=== PATIENT | male | born 1940 | race Caucasian/White ===

== ENCOUNTER → 2018-11-11 | Outpatient (CLI) | payer MEDICARE ==
[~2018-11-11] MED LIST: Percocet 5-3251 EACH PO; Ultram50 MG PO; Zofran Odt4 MG SL
== END | disposition home or self-care (01) ==
LOC: PLD 13:55 → LAB SHORT 13:55
DX: L57.0 Actinic keratosis (principal)
CPT/HCPCS: 88305

== ENCOUNTER 2019-02-03 08:50 | Day surgery (SDC) | payer MEDICARE ==
[~2019-02-03] VITALS: Ht 177.8 cm; Wt 84.4 kg
[~2019-02-03 08:50] MED LIST changes: +ATOR10 PO; +Aspir 8181 MG PO; +FINA5 PO; +LOSA25 PO; +TAMS.4ER PO; +[UNRECOGNIZED DRUG - OTHER] PO
--- NOTE | 2019-02-03 09:36 | NUR ---
02/03/19 0936 Rand Hartman S PT. WITH CRACKLES IN RLL POSTERIORLY. PT. VERBALIZES HAVING 2 SPONTANEOUS PNEUMOTHAX IN HIS YOUNGER YEARS SO THERE IS SCAR TISSUE. DR. DENISE AWARE, NO ORDERS GIVEN.
== END 2019-02-03 10:50 | disposition home or self-care (01) ==
LOC: ORSCSDS 08:50
PROVIDERS: Surgery
PROC: 0DJD8ZZ Inspection of Lower Intestinal Tract, Via Natural or Artificial Opening Endoscopic (ICD-10-PCS; principal; 2019-02-03 10:00)
DX: Z12.11 Encounter for screening for malignant neoplasm of colon (principal); Z86.010 Personal history of colon polyps; K57.30 Diverticulosis of large intestine without perforation or abscess without bleeding; K64.8 Other hemorrhoids; E78.5 Hyperlipidemia, unspecified; Z79.82 Long term (current) use of aspirin; Z79.899 Other long term (current) drug therapy
CPT/HCPCS: 82947; J7120

== ENCOUNTER → 2025-03-21 | Outpatient (CLI) | payer OTHER | LOC: LAB SHORT 08:02 → LAB 08:02 | DX: C05.0 Malignant neoplasm of hard palate (principal); K13.70 Unspecified lesions of oral mucosa | CPT/HCPCS: 88305; 88342 ==

== ENCOUNTER 2025-08-29 16:32 | Inpatient (IN) | payer OTHER ==
[~2025-08-29] VITALS: Ht 172.7 cm; Wt 81.6 kg
[2025-08-29 17:29] LABS: BASOPHILS ABSOLUTE AUTO 0.07 K/mm3 (0.00-0.23); BASOPHILS PERCENT AUTO 0 % (0-2); EOSINOPHILS ABSOLUTE AUTO 1.71 K/mm3 (0.00-0.68); EOSINOPHILS PERCENT AUTO 6 % (0-6); Hematocrit 35.8 % (37.0-53.0); Hemoglobin 11.8 g/dL (13.5-17.5); IMMATURE GRAN ABSOLUTE AUTO 0.17 K/mm3 (0.00-0.10); IMMATURE GRAN PERCENT AUTO 1 % (0-1); LYMPHOCYTES ABSOLUTE AUTO 1.15 K/mm3 (0.84-5.20); LYMPHOCYTES PERCENT AUTO 4 % (21-46); MONOCYTES ABSOLUTE AUTO 1.52 K/mm3 (0.16-1.47); MONOCYTES PERCENT AUTO 5 % (4-13); Mean Corpuscular HGB Conc 33.0 g/dL (31.5-36.5); Mean Corpuscular Volume 81 fL (80-100); NEUTROPHILS ABSOLUTE AUTO 24.17 K/mm3 (1.96-9.15); NEUTROPHILS PERCENT AUTO 84 % (41-73); NRBC ABSOLUTE 0.00 K/mm3 (0.00-0.02); NRBC Auto 0.0 /100 WBC (0.0-0.2); Platelet Count 249 K/mm3 (150-400); RDW Coefficient Variation 14.2 % (11.7-14.2); RDW Standard Deviation 41.8 fL (35.1-46.3)
[2025-08-29] MEDS ORDERED: Cefepime HCl 2,000 MG in NS 100 ML IV ONE (17:55)
[2025-08-29 18:01] LABS: Alanine Aminotransfer (ALT/SGP 35.0 U/L (12-78); Albumin, Blood 2.6 g/dL (3.4-5.0); Albumin/Globulin Ratio 0.6 (0.8-1.8); Anion Gap 7.0 mmol/L (3-11); Aspartate Aminotrans (AST/SGOT 22.0 U/L (12-37); Bilirubin, Total 0.7 mg/dL (0.1-1.0); Blood Urea Nitrogen 30.0 mg/dL (8-24); CO2, Blood 30.0 mmol/L (21-32); Calcium, Blood 10.4 mg/dL (8.5-10.1); Chloride, Blood 103.0 mmol/L (98-108); Creatinine, Blood 0.86 mg/dL (0.60-1.20); Globulin, Blood 4.6 g/dL (2.2-4.0); Glucose, Blood 119.0 mg/dL (70-99); Potassium, Blood 3.7 mmol/L (3.5-5.5); Sodium, Blood 136.0 mmol/L (136-145); Total Protein, Blood 7.2 g/dL (6.4-8.2)
[2025-08-29 18:34] LABS: Source, Urine Clean Catch
[2025-08-29 18:37] LABS: Bilirubin, Urine Neg (Neg); Color, Urine Yellow (P-Yellow); Glucose Qualitative, Urine Neg (Neg); Ketones, Urine Neg (Neg); Leukocyte Esterase, Urine Neg (Neg); Protein, Urine 1+ (Neg); Specific Gravity, Urine 1.015 (1.003-1.022); Urobilinogen, Urine NORM (Normal)
[2025-08-29] MEDS ORDERED: NS 1,000 ML IV SCH ×2 (18:40→21:20)
[2025-08-29] MEDS ORDERED: Ondansetron HCl 2 MG / ML 2ML Vial IV PRN (21:20)
[2025-08-29] MEDS ORDERED: FLU VACC TS2025(65UP)/MF59C/PF 45 MCG/0.5 ML SYRINGE IM SCH (21:20)
[2025-08-29] MEDS ORDERED: Albuterol 2.5 MG/3 ML VIAL INH PRN (23:00)
[2025-08-29 23:21] LABS: pH Blood Venous 7.54 (7.34-7.37)
[2025-08-29 23:29] LABS: SARS-Cov-2 (COVID-19), BioFire Not Detected (NOT DETECT)
[2025-08-29 23:30] LABS: Influenza A/2009-H1 Not Detected (NOT DETECT)
[2025-08-29] MEDS ORDERED: LORazepam 2 MG/ML 1ML Injection IV ONE (23:35)
[2025-08-30 01:03] VITALS: BP 141/56
[2025-08-30 04:26] VITALS: BP 125/46
--- NOTE | 2025-08-30 04:46 | NUR ---
SHIFT SUMMARY PATIENT ADMITTED FOR SIRS THIS SHIFT. VSS. PATIENT ON CONTINUOUS NORMAL SALINE 100ML/HR. PATIENT INSISTENT ON STANDING TO PEE DUE TO ARTIFICIAL URETHAL SPHINCTER. PATIENT HAS UNSTEADY GATE DUE TO WEAKNESS AND SHAKINESS. PATIENT OFFERED MALE PUREWICK AND AT FIRST REFUSED BUT ULTIMATELY DECIDED TO LET US PLACE THE PUREWICK. PATIENT HAD COMPLAINTS OF A NOSEBLEED WHICH WAS RESOLVED WITH PRESSURE. PATIENT HAS SLURRED SPEECH DUE TO JAW SURGERY. BED IN LOWEST POSITION FOR SAFETY, BED RAILS UP X2, BED ALARM ON. PATIENT ORIENTED TO CALL LIGHT AND CALL LIGHT WITHIN REACH.
[2025-08-30 04:53] LABS: BASOPHILS ABSOLUTE AUTO 0.04 K/mm3 (0.00-0.23); BASOPHILS PERCENT AUTO 0 % (0-2); EOSINOPHILS ABSOLUTE AUTO 0.06 K/mm3 (0.00-0.68); EOSINOPHILS PERCENT AUTO 0 % (0-6); Hematocrit 32.4 % (37.0-53.0); Hemoglobin 10.8 g/dL (13.5-17.5); IMMATURE GRAN ABSOLUTE AUTO 0.14 K/mm3 (0.00-0.10); IMMATURE GRAN PERCENT AUTO 1 % (0-1); LYMPHOCYTES ABSOLUTE AUTO 1.05 K/mm3 (0.84-5.20); LYMPHOCYTES PERCENT AUTO 5 % (21-46); MONOCYTES ABSOLUTE AUTO 1.45 K/mm3 (0.16-1.47); MONOCYTES PERCENT AUTO 6 % (4-13); Mean Corpuscular HGB Conc 33.3 g/dL (31.5-36.5); Mean Corpuscular Volume 80 fL (80-100); NEUTROPHILS ABSOLUTE AUTO 20.70 K/mm3 (1.96-9.15); NEUTROPHILS PERCENT AUTO 88 % (41-73); NRBC ABSOLUTE 0.00 K/mm3 (0.00-0.02); NRBC Auto 0.0 /100 WBC (0.0-0.2); Platelet Count 261 K/mm3 (150-400); RDW Coefficient Variation 14.1 % (11.7-14.2); RDW Standard Deviation 41.8 fL (35.1-46.3)
[2025-08-30 05:19] LABS: Anion Gap 7.0 mmol/L (3-11); Blood Urea Nitrogen 23.0 mg/dL (8-24); CO2, Blood 28.0 mmol/L (21-32); Calcium, Blood 9.4 mg/dL (8.5-10.1); Chloride, Blood 110.0 mmol/L (98-108); Creatinine, Blood 0.78 mg/dL (0.60-1.20); Glucose, Blood 127.0 mg/dL (70-99); Magnesium, Blood 1.9 mg/dL (1.6-2.4); Potassium, Blood 3.5 mmol/L (3.5-5.5); Sodium, Blood 141.0 mmol/L (136-145)
[2025-08-30] MEDS ORDERED: CefTRIAXone Sodium 1,000 MG in NS 100 ML IV SCH (06:00)
[2025-08-30] MEDS ORDERED: Enoxaparin 40 MG/0.4 ML SYR SC SCH (09:00)
[2025-08-30] MEDS ORDERED: TRESIBA FL100 UNIT/2 SC (09:19)
[2025-08-30 11:23] VITALS: BP 129/55
[2025-08-30] MEDS ORDERED: Ampicillin Sod/Sulbactam Sod 3 GM in NS 100 ML IV SCH (18:00)
[2025-08-30 18:28] LABS: Prothrombin Time Results 13.1 Sec (9.7-11.5)
--- NOTE | 2025-08-30 18:49 | NUR ---
SHIFT SUMMARY PATIENT A/OX4, ABLE TO MAKE NEEDS KNOWN. PLEASANT AND COOPERATIVE WITH CARE. MUMBLED SOFT SPEECH. 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 TELEGRAPHIC TYPEWRITER INSTALLER CALLED THIS AM PER PATIENT'S SPOUSE REQUEST. MED REC COMPLETED TODAY, MEDICATIONS HELD THIS AM THEY WERE NOT MEDICATION PATIENT WAS TAKING ANY LONGER. PATIENT WITH ARTIFICAL URETHRAL SPHINCTER AND ABLE TO TURN ON/OFF ABILITY TO URINATE BY ACTIVATING. WBC ELEVATED, IV FLUIDS AND ABX INFUSING PER MAR. PLAN TO HAVE LUNG BIOPSY TOMORROW, HOLD LOVENOX. PATIENT'S PROVIDED HOME MEDICATION OF PEPTO TODAY AND EDUCATED TO NOT HAVE ANY HOME MEDICATION. PATIENT WITH DIARRHEA, MD NOTIFIED AND IMODIUM ADMINISTERED PER JAN. PHYSICAL THERAPY ASSESSED PATIENT THIS SHIFT, ABLE TO AMBULATE 1 PERSON ASSIST. 1-2 PERSEON DEPENDING ON STRENGTH. NO OTHER CONCERNS AT THIS TIME, WILL CONTINUE TO MONITOR.
[2025-08-30 19:34] VITALS: BP 134/57
[2025-08-30] MEDS ORDERED: Insulin Glargine 100 Unit/ML 3 ML SYR SC SCH (21:00)
[2025-08-30 23:46] VITALS: BP 118/55
[2025-08-31] VITALS (15 sets, daily range): BP systolic 100–155; BP diastolic 54–93
--- NOTE | 2025-08-31 03:34 | NUR ---
SHIFT SUMMARY ADMITTED FOR SIRS. DNR CODE. IV FLUID INFUSING. IV ANTIB RX ARE SCHEDULED. LUNG BIOPSY SCHEDULED FOR TODAY. PNEUMONIA VS. LUNG CANCER. TELEMETRY: NSR @ 97 BPM. PUREE/ADA DIET. A&O X4. SPEECH IS MUMBLED DUE TO JAW SURGERY. 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 LAST CHEMO TX RECEIVED ON 08/28/25.
[2025-08-31 04:48] LABS: BASOPHILS ABSOLUTE AUTO 0.03 K/mm3 (0.00-0.23); BASOPHILS PERCENT AUTO 0 % (0-2); EOSINOPHILS ABSOLUTE AUTO 0.21 K/mm3 (0.00-0.68); EOSINOPHILS PERCENT AUTO 1 % (0-6); Hematocrit 30.8 % (37.0-53.0); Hemoglobin 10.2 g/dL (13.5-17.5); IMMATURE GRAN ABSOLUTE AUTO 0.08 K/mm3 (0.00-0.10); IMMATURE GRAN PERCENT AUTO 0 % (0-1); LYMPHOCYTES ABSOLUTE AUTO 1.44 K/mm3 (0.84-5.20); LYMPHOCYTES PERCENT AUTO 8 % (21-46); MONOCYTES ABSOLUTE AUTO 1.18 K/mm3 (0.16-1.47); MONOCYTES PERCENT AUTO 6 % (4-13); Mean Corpuscular HGB Conc 33.1 g/dL (31.5-36.5); Mean Corpuscular Volume 80 fL (80-100); NEUTROPHILS ABSOLUTE AUTO 15.80 K/mm3 (1.96-9.15); NEUTROPHILS PERCENT AUTO 84 % (41-73); NRBC ABSOLUTE 0.00 K/mm3 (0.00-0.02); NRBC Auto 0.0 /100 WBC (0.0-0.2); Platelet Count 262 K/mm3 (150-400); RDW Coefficient Variation 14.2 % (11.7-14.2); RDW Standard Deviation 41.8 fL (35.1-46.3)
[2025-08-31 05:14] LABS: Anion Gap 7.0 mmol/L (3-11); Blood Urea Nitrogen 19.0 mg/dL (8-24); CO2, Blood 26.0 mmol/L (21-32); Calcium, Blood 8.5 mg/dL (8.5-10.1); Chloride, Blood 112.0 mmol/L (98-108); Creatinine, Blood 0.71 mg/dL (0.60-1.20); Glucose, Blood 108.0 mg/dL (70-99); Potassium, Blood 3.1 mmol/L (3.5-5.5); Sodium, Blood 142.0 mmol/L (136-145)
[2025-08-31] MEDS ORDERED: Enoxaparin 40 MG/0.4 ML SYR SC SCH (09:00)
--- NOTE | 2025-08-31 19:44 | NUR ---
SHIFT SUMMARY PATIENT A/OX4, ABLE TO MAKE NEEDS KNOWN. SOFT, MUMBLED SPEECH R/T HX JAW RESSUCTION. LUNG BIOPSY OBTAINED THIS MORNING, PATIENT RETURNED AFTER PROCEDURE WITH POSSIBLE PNEOMOTHORAX. MD MADE AWARE AND AT BEDSIDE UPON HIS RETURN TO RM [id number]. PATIENT PLACED ON SUPPLEMENTAL OXYGEN, 2LPM VIA NASAL CANNULA. STRICT BEDREST X2H POST PROCEDURE. VS OBTAINED Q15 MIN X4 THEN Q30 MIN X2, VSS. ORDER FOR NO HEAVY LIFTING. NO BLOOD THINNERS X48 HOURS. 2HOUR POST OP PATIENT HAD CHEST X RAY SHOWING PNEUMOTHORAX RESOLVED. PATIENT COMPLAINING OF HICCUPS THROUGHOUT THE SHIFT, BACLOFEN ORDER CHANGED TODAY TO HELP RELOIEVE SYMPTOMS. TELEMTERY IN PLACE, NO EVENTS NOTED PATIENT WITH SINUS RHYTHYM, BBB RATE IN 80-90s. POTASSIUM INFUSED PER JAN. NEW IV PLACED TO HERBER VIA ULTRASOUND. NO OTHER CONCERNS AT THIS TIME, BEDSIDE SHIFT REPORT COMPLETED [facility] CHLORINATION OPERATOR RN.
[2025-08-31] MEDS ORDERED: Prochlorperazine Edisylate 10 mg Vial IV ONE (19:55)
[2025-09-01 04:05] VITALS: BP 100/89
--- NOTE | 2025-09-01 04:32 | NUR ---
SHIFT SUMMARY ADMITTED FOR SIRS. DNR CODE. LUNG BIOPSY PERFORMED ON PREVIOUS SHIFT. PNEUMONIA VS. CANCER TO BE DETERMINED. IV ANTIB RX ARE SCHEDULED. IV FLUID INFUSING. DR. PADILLA IS HIS ONCOLOGIST. HX OF JAW CANCER W/RESECTION. 1 ASSIST TO BSC W/FWW. A&O X3, ANXIOUS. TELEMETRY: NSR @ 74 BPM. PUREE/ADA DIET. RECENT CHEMO ON 08/28/2025.
[2025-09-01 04:34] LABS: BASOPHILS ABSOLUTE AUTO 0.04 K/mm3 (0.00-0.23); BASOPHILS PERCENT AUTO 0 % (0-2); EOSINOPHILS ABSOLUTE AUTO 0.27 K/mm3 (0.00-0.68); EOSINOPHILS PERCENT AUTO 2 % (0-6); Hematocrit 29.5 % (37.0-53.0); Hemoglobin 9.6 g/dL (13.5-17.5); IMMATURE GRAN ABSOLUTE AUTO 0.08 K/mm3 (0.00-0.10); IMMATURE GRAN PERCENT AUTO 1 % (0-1); LYMPHOCYTES ABSOLUTE AUTO 1.36 K/mm3 (0.84-5.20); LYMPHOCYTES PERCENT AUTO 9 % (21-46); MONOCYTES ABSOLUTE AUTO 1.27 K/mm3 (0.16-1.47); MONOCYTES PERCENT AUTO 8 % (4-13); Mean Corpuscular HGB Conc 32.5 g/dL (31.5-36.5); Mean Corpuscular Volume 82 fL (80-100); NEUTROPHILS ABSOLUTE AUTO 12.81 K/mm3 (1.96-9.15); NEUTROPHILS PERCENT AUTO 81 % (41-73); NRBC ABSOLUTE 0.00 K/mm3 (0.00-0.02); NRBC Auto 0.0 /100 WBC (0.0-0.2); Platelet Count 250 K/mm3 (150-400); RDW Coefficient Variation 14.2 % (11.7-14.2); RDW Standard Deviation 42.4 fL (35.1-46.3)
[2025-09-01 05:13] LABS: Anion Gap 7.0 mmol/L (3-11); Blood Urea Nitrogen 20.0 mg/dL (8-24); CO2, Blood 26.0 mmol/L (21-32); Calcium, Blood 8.4 mg/dL (8.5-10.1); Chloride, Blood 111.0 mmol/L (98-108); Creatinine, Blood 0.65 mg/dL (0.60-1.20); Glucose, Blood 146.0 mg/dL (70-99); Potassium, Blood 3.2 mmol/L (3.5-5.5); Sodium, Blood 141.0 mmol/L (136-145)
[2025-09-01 07:51] VITALS: BP 139/55
[2025-09-01] MEDS ORDERED: Enoxaparin 40 MG/0.4 ML SYR SC SCH (09:00)
[2025-09-01 11:39] VITALS: BP 139/63
[2025-09-01 15:21] VITALS: BP 167/67
--- NOTE | 2025-09-01 17:40 | NUR ---
SUMMARY- AAOX4. X1 ASSIST WITH WALKER AND GATE BELT TO BATHROOM/CHAIR. PT ON RA NOW. PT DENIES ANY PAIN THIS SHIFT. NO ACUTE EVENTS THIS SHIFT.
[2025-09-01 19:38] VITALS: BP 143/51
[2025-09-02 00:14] VITALS: BP 167/73
[2025-09-02 03:10] VITALS: BP 146/65
[2025-09-02 04:48] LABS: BASOPHILS ABSOLUTE AUTO 0.04 K/mm3 (0.00-0.23); BASOPHILS PERCENT AUTO 0 % (0-2); EOSINOPHILS ABSOLUTE AUTO 0.57 K/mm3 (0.00-0.68); EOSINOPHILS PERCENT AUTO 3 % (0-6); Hematocrit 30.6 % (37.0-53.0); Hemoglobin 9.9 g/dL (13.5-17.5); IMMATURE GRAN ABSOLUTE AUTO 0.12 K/mm3 (0.00-0.10); IMMATURE GRAN PERCENT AUTO 1 % (0-1); LYMPHOCYTES ABSOLUTE AUTO 1.21 K/mm3 (0.84-5.20); LYMPHOCYTES PERCENT AUTO 7 % (21-46); MONOCYTES ABSOLUTE AUTO 1.24 K/mm3 (0.16-1.47); MONOCYTES PERCENT AUTO 7 % (4-13); Mean Corpuscular HGB Conc 32.4 g/dL (31.5-36.5); Mean Corpuscular Volume 81 fL (80-100); NEUTROPHILS ABSOLUTE AUTO 15.32 K/mm3 (1.96-9.15); NEUTROPHILS PERCENT AUTO 83 % (41-73); NRBC ABSOLUTE 0.00 K/mm3 (0.00-0.02); NRBC Auto 0.0 /100 WBC (0.0-0.2); Platelet Count 265 K/mm3 (150-400); RDW Coefficient Variation 14.1 % (11.7-14.2); RDW Standard Deviation 41.7 fL (35.1-46.3)
[2025-09-02 05:14] LABS: Anion Gap 8.0 mmol/L (3-11); Blood Urea Nitrogen 14.0 mg/dL (8-24); CO2, Blood 25.0 mmol/L (21-32); Calcium, Blood 8.2 mg/dL (8.5-10.1); Chloride, Blood 108.0 mmol/L (98-108); Creatinine, Blood 0.61 mg/dL (0.60-1.20); Glucose, Blood 133.0 mg/dL (70-99); Potassium, Blood 3.2 mmol/L (3.5-5.5); Sodium, Blood 138.0 mmol/L (136-145)
--- NOTE | 2025-09-02 06:26 | NUR ---
SHIFT SUMMARY PATIENT A/OX3-4, ANXIOUS INTERMITTENTLY, BUT EASILY CONSOLABLE. PLEASANT AND COOPERATIVE WITH CARE. BLACOFEN ADMINISTRED PER MAR FOR HICCUPS. TELEMETRY IN PLACE, SINUS TACH WITH BBB 100s. IV FLUIDS AND BX INFUSED PER JAN. PATIENT RESTLESS THIS SHIFT WITH MINIMAL SLEEP. IV TO MARTY REMOVED. PATIENT'S UPDATED ON PATIENT STATUS VIA TELEPHONE. NO OTHER CONCERNS AT THIS TIME, WILL CONTINUE TO MONITOR.
[2025-09-02 07:38] VITALS: BP 141/67
--- NOTE | 2025-09-02 08:28 | NUR ---
pt sitting up in chair waiting for breakfast, a/ox4, pleasant and cooperative with care, follows commands well, lungs are clear in upper eng, with some fine crackles in bases, resp even and unlabored, on r/a, hrr, tele in place running sr to st per monitor, see strip, 2+ edema noted to b/l le, ppp+1, cap refill<3 sec, vs stable, afebrile, piv to lac site is clear and patent, btx4, abd flat soft nontender, voids without diff, skin c/w/d, maew, john, call light in reach.
[2025-09-02] MEDS ORDERED: Polyethylene Glycol 3350 17 gm PO SCH (11:00)
[2025-09-02 12:01] VITALS: BP 141/67
[2025-09-02 16:02] VITALS: BP 147/59
[2025-09-02] MEDS ORDERED: Furosemide 10 MG / ML 2ML Vial IV ONE (18:25)
--- NOTE | 2025-09-02 18:32 | NUR ---
pt up to chair several times today, has a wet cough, brings in his food for him, no further changes this shift. call light in reach.
--- NOTE | 2025-09-02 18:51 | NUR ---
PALLIATIVE CARE VISIT: CONSULT RECEIVED FOR ADVANCE CARE PLANNING. REVIEWED MEDICAL RECORD. NO POLST ON FILE WITH POLST REGISTRY. PT IS DNR. MET WITH PT IN HIS ROOM. BEAN IS ALSO PRESENT. PT AGREEABLE TO VISIT. DISCUSSED GOC. PT WANTS TO GET WELL ENOUGH TO GO BACK IN 6 WEEKS TO RESUME HIS IMMUNOTHERAPY FOR HIS LUNG CANCER. PT STATES HE FEELS STRONG ENOUGH TO RESUME THERAPY. DISCUSSED ADVANCE DIRECTIVE. PT HAS ONE ON FILE WITH DR. RASHID. STATES SHE WILL BRING COPY TOMORROW. PT AGREEABLE TO COMPLETING A POLST. DISCUSSED IN DETAIL WHAT DNR STATUS IS. PT WANTS TO REMAIN DNR AFTER MUCH DISCUSSION. IS SUPPORTIVE IN HIS DECISION. POLST COMPLETED. MD NEEDS TO SIGN.
[2025-09-02 20:07] VITALS: BP 146/58
[2025-09-03 00:07] VITALS: BP 139/70
[2025-09-03 04:29] LABS: BASOPHILS ABSOLUTE AUTO 0.06 K/mm3 (0.00-0.23); BASOPHILS PERCENT AUTO 0 % (0-2); EOSINOPHILS ABSOLUTE AUTO 1.02 K/mm3 (0.00-0.68); EOSINOPHILS PERCENT AUTO 5 % (0-6); Hematocrit 29.7 % (37.0-53.0); Hemoglobin 10.1 g/dL (13.5-17.5); IMMATURE GRAN ABSOLUTE AUTO 0.14 K/mm3 (0.00-0.10); IMMATURE GRAN PERCENT AUTO 1 % (0-1); LYMPHOCYTES ABSOLUTE AUTO 1.69 K/mm3 (0.84-5.20); LYMPHOCYTES PERCENT AUTO 9 % (21-46); MONOCYTES ABSOLUTE AUTO 1.32 K/mm3 (0.16-1.47); MONOCYTES PERCENT AUTO 7 % (4-13); Mean Corpuscular HGB Conc 34.0 g/dL (31.5-36.5); Mean Corpuscular Volume 79 fL (80-100); NEUTROPHILS ABSOLUTE AUTO 15.73 K/mm3 (1.96-9.15); NEUTROPHILS PERCENT AUTO 79 % (41-73); NRBC ABSOLUTE 0.00 K/mm3 (0.00-0.02); NRBC Auto 0.0 /100 WBC (0.0-0.2); Platelet Count 295 K/mm3 (150-400); RDW Coefficient Variation 14.1 % (11.7-14.2); RDW Standard Deviation 40.8 fL (35.1-46.3)
[2025-09-03 04:42] VITALS: BP 137/59
[2025-09-03 04:48] LABS: Anion Gap 7.0 mmol/L (3-11); Blood Urea Nitrogen 15.0 mg/dL (8-24); CO2, Blood 28.0 mmol/L (21-32); Calcium, Blood 8.3 mg/dL (8.5-10.1); Chloride, Blood 107.0 mmol/L (98-108); Creatinine, Blood 0.67 mg/dL (0.60-1.20); Glucose, Blood 129.0 mg/dL (70-99); Potassium, Blood 3.2 mmol/L (3.5-5.5); Sodium, Blood 139.0 mmol/L (136-145)
[2025-09-03 07:18] VITALS: BP 105/48
--- NOTE | 2025-09-03 07:27 | NUR ---
SHIFT SUMMARY A/Ox4, VSS ON 2L. CONTINUOUS PULSE OX IN PLACE. NSR ON TELE, HR 80s. LONG BOUTS OF HICCUPS MANAGED WITH PRN REGLAN AND BACLOFEN WHICH APPEARED MILDLY EFFECTIVE. PT UP TO BEDSIDE WITH SBA/FWW FOR URINAL. INTERMITTENT, NON-PRODUCTIVE COUGH NOTED. NO ACUTE CHANGES OVERNIGHT.
[2025-09-03] MEDS ORDERED: Enoxaparin 40 MG/0.4 ML SYR SC SCH (09:00)
--- NOTE | 2025-09-03 11:30 | NUR ---
IV ACCESS PT WRIST IV LEAKING. ATTEMPTED POWER GLIDE X2. RIGTH UE IS NOT ACCEPTABLE TO ACCESS LEFT ARM WAS ABLE TO GET IN BUT UNABLE TO THREAD. TALKED WITH DR LEMONS ABOUT ORAL ANTIBITCS. ANTICAPATING CHANGE IN ORDERS. CARE ONGOING.
[2025-09-03 11:44] VITALS: BP 130/60
--- NOTE | 2025-09-03 14:13 | NUR ---
DISCHARGE HOME PT EXPRESSED DESIRE TO HAVE PT GO HOME TOMORROW. DR LEMONS CALLED. CARE ON GOING.
[2025-09-03 15:49] VITALS: BP 119/52
--- NOTE | 2025-09-03 17:16 | NUR ---
NOTE WEANED TO RA. PT SAT STABLE 94% WHILE SLEEPING. PT WEAK AND UNSTEADY WHEN UP. NEEDING ASSIST WITH FWW. HE LEANS BACKWARDS WHEN STANDING. PT ABLE TO FUNCTION HIS PENIAL SHUNT TO VOID. POOR APPETITE. HE REALLY DOESN'T LIKE THE FOOD. PT IS BRINGING IN DINNER. DENIED PAIN. PT HAS HAD INTERMITTANT HICCUPS. GAVE REGLAN AT 1200 STILL HICCUPS AFTER. MEDCIATED WITH BACLOFEN AT 1500. EFFECTIVE. PT NEEDED TWO ASSIST TO THE BSC. HE HAD A SMALL. HARD, FORMED STOOL. OXYGEN WITH STANDING/VOIDING ON RA 93%. HR 80'S. CURRENTLY SITTING UP IN THE CHAIR. CALL LIGHT WITH INR EACH. SLIPPY SOCKS ON. CAREONGOING.
[2025-09-03 19:58] VITALS: BP 130/54
[2025-09-04 00:15] VITALS: BP 137/58
[2025-09-04 03:43] VITALS: BP 133/54
--- NOTE | 2025-09-04 05:09 | NUR ---
SHIFT SUMMARY: PT AOX4 WITH SOME CONFUSION AT TIMES. PT PLEASANT AND COOPERATIVE IN CARE. CONSTANTLY COMPLAINING OF HICCUPS AND/ OR A NON PRODUCTIVE COUGH. MEDICATED PER EMR. ROOMTEMP SODA WATER HAS BEEN HELPING PER PT. SEEMS ANXIOUS AND UNABLE TO SLEEP. ALTHOUGH STATES TO BE FEELING BETTER. HAD SEVERAL VOIDS THROUGH THE NIGHT AND WAS ABLE TO DO WITH 1 ASSIST. PT RAN A LOW FEVER OF 99.6, MEDICATED PER EMR. PT IN BED SLEEPING, BED IN LOWEST POSITION ,CALL LIGHT IN REACH. CONTINUING CARE.
[2025-09-04 06:44] LABS: BASOPHILS ABSOLUTE AUTO 0.04 K/mm3 (0.00-0.23); BASOPHILS PERCENT AUTO 0 % (0-2); EOSINOPHILS ABSOLUTE AUTO 0.98 K/mm3 (0.00-0.68); EOSINOPHILS PERCENT AUTO 6 % (0-6); Hematocrit 29.4 % (37.0-53.0); Hemoglobin 9.4 g/dL (13.5-17.5); IMMATURE GRAN ABSOLUTE AUTO 0.09 K/mm3 (0.00-0.10); IMMATURE GRAN PERCENT AUTO 1 % (0-1); LYMPHOCYTES ABSOLUTE AUTO 1.51 K/mm3 (0.84-5.20); LYMPHOCYTES PERCENT AUTO 9 % (21-46); MONOCYTES ABSOLUTE AUTO 1.14 K/mm3 (0.16-1.47); MONOCYTES PERCENT AUTO 7 % (4-13); Mean Corpuscular HGB Conc 32.0 g/dL (31.5-36.5); Mean Corpuscular Volume 82 fL (80-100); NEUTROPHILS ABSOLUTE AUTO 13.21 K/mm3 (1.96-9.15); NEUTROPHILS PERCENT AUTO 78 % (41-73); NRBC ABSOLUTE 0.00 K/mm3 (0.00-0.02); NRBC Auto 0.0 /100 WBC (0.0-0.2); Platelet Count 289 K/mm3 (150-400); RDW Coefficient Variation 14.1 % (11.7-14.2); RDW Standard Deviation 41.9 fL (35.1-46.3)
[2025-09-04 07:01] LABS: Anion Gap 7.0 mmol/L (3-11); Blood Urea Nitrogen 16.0 mg/dL (8-24); CO2, Blood 28.0 mmol/L (21-32); Calcium, Blood 8.3 mg/dL (8.5-10.1); Chloride, Blood 106.0 mmol/L (98-108); Creatinine, Blood 0.59 mg/dL (0.60-1.20); Glucose, Blood 108.0 mg/dL (70-99); Potassium, Blood 3.2 mmol/L (3.5-5.5); Sodium, Blood 138.0 mmol/L (136-145)
[2025-09-04 07:48] VITALS: BP 135/58
[2025-09-04] MEDS ORDERED: Acetaminophen650 M1 PO (11:47)
[2025-09-04] MEDS ORDERED: LEVOFLOXACIN750 MG PO (11:48)
[2025-09-04] MEDS ORDERED: BACL10 PO (11:48)
[2025-09-04] MEDS ORDERED: VISBIOME 112.51 EACH PO (11:49)
[2025-09-04] MEDS ORDERED: Tessalon200 MG PO (11:49)
--- NOTE | 2025-09-04 12:53 | NUR ---
pt discharged THE PT AND HIS DAUGHTER VERBALIZED UNDERSTANDING OF THE DC INSTRUCTIONS. THE PTS PRESCRIPTIONS WERE FAXED TO [facility] REQUESTED. THE PT WAS TRANSFERED VIA WHEELCAIR ACCOMPANIED BY THE PUMPING STATION ENGINEER AND HIS FAMILY
--- NOTE | 2025-09-04 13:03 | NUR ---
DISCHARGE DISCAHRGE HOME WITH FAMILY. PT SAW PT. HOME HEALTH TO FOLLOW. MED ORDERS FAXED TO [facility]. PT RECEIVED HIS DAILY LEVAQUIN PRIOR TO LEAVING. NO IV. CARE ONGOING.
== END 2025-09-04 12:45 | disposition home health service (06) | DRG 871 ==
LOC: ER 16:32 → MEDS 16:33 → ENPENDDIS 09-04 11:27 → MEDS 09-04 12:45
PROVIDERS: Emergency Medicine; Internal Medicine; Nurse Practitioner Acute Care; ADMIT Internal Medicine
DX: A41.9 Sepsis, unspecified organism (principal); J18.9 Pneumonia, unspecified organism; E11.9 Type 2 diabetes mellitus without complications; I45.10 Unspecified right bundle-branch block; I10 Essential (primary) hypertension; N40.0 Benign prostatic hyperplasia without lower urinary tract symptoms; E78.5 Hyperlipidemia, unspecified; D64.9 Anemia, unspecified; E83.52 Hypercalcemia; R91.8 Other nonspecific abnormal finding of lung field; C03.9 Malignant neoplasm of gum, unspecified; Z79.82 Long term (current) use of aspirin; Z79.899 Other long term (current) drug therapy; Z88.5 Allergy status to narcotic agent; Z91.041 Radiographic dye allergy status; Z85.46 Personal history of malignant neoplasm of prostate; Z90.89 Acquired absence of other organs; Z98.890 Other specified postprocedural states; Z98.41 Cataract extraction status, right eye; Z85.89 Personal history of malignant neoplasm of other organs and systems
CPT/HCPCS: 0202U; 32408; 36415; 71045; 71046; 71260; 77012; 80048; 80053; 82803; 82947; 83605; 83735; 84145; 85025; 85610; 85730; 87040; 87070; 87075; 87205; 87449; 88108; 93005; 93010; 94760; 94762; 96361; 96365; 96367; 96372; 96375; 97110; 97110-CQ; 97116; 97116-CQ; 97162; 97530; 99285-25; A9270; G0378; J0295; J0456; J0692; J0696; J0780; J1650; J1815; J1938; J2060; J3480; J7030; J7050; Q9967